=== PATIENT | female | born 1990 | race African-American/Black ===

== ENCOUNTER 2019-12-08 14:26 | Emergency (ER) | payer MEDICAID, OTHER ==
[~2019-12-08] VITALS: Ht 165.1 cm; Wt 100.0 kg
[~2019-12-08 14:26] MED LIST: FERR-43 PO; HYDR-523 PO; MULT-1146 PO
[2019-12-08] MEDS ORDERED: ACETAMINOPHEN 325MG TABLET PO ONE (15:15)
[2019-12-08 17:31] VITALS: BP 139/98
== END 2019-12-08 17:32 | disposition home or self-care (01) ==
LOC: ER 14:26
DX: G43.909 Migraine, unspecified, not intractable, without status migrainosus (principal); H40.9 Unspecified glaucoma; I10 Essential (primary) hypertension; Z98.890 Other specified postprocedural states; Z79.899 Other long term (current) drug therapy; Z88.6 Allergy status to analgesic agent
CPT/HCPCS: 81025; 99284

== ENCOUNTER 2021-10-29 23:12 | Emergency (ER) | payer MEDICAID ==
[~2021-10-29] VITALS: Ht 162.6 cm; Wt 132.0 kg
[2021-10-30] MEDS ORDERED: ACETAMINOPHEN 500MG TABLET PO ONE (01:15)
[2021-10-30 01:50] LABS: CHLORIDE 105 mEq/L (98-107)
[2021-10-30 01:56] LABS: BASOPHILS % 0.3 % (0.0-2.0); EOSINOPHILS % 2.4 % (0.0-5.0); HEMATOCRIT. 37.4 % (36.0-48.0); HEMOGLOBIN. 12.4 g/dL (12.0-16.0); LYMPHOCYTES % 27.6 % (20.0-50.0); MEAN CORPUSCULAR VOLUME 84.3 fL (81.0-99.0); MEAN PLATELET VOLUME 8.5 fl (7.4-10.4); MONOCYTES % 7.4 % (2.0-8.0); NEUTROPHILS % 62.3 % (40.0-76.0); PLATELET 202 x1000/uL (130-400); RED BLOOD CELL COUNT 4.43 mill/uL (4.2-5.4); RED CELL DISTRIBUTION WIDTH 13.7 % (11.6-14.6)
[2021-10-30 03:30] VITALS: BP 133/87
== END 2021-10-30 04:00 | disposition home or self-care (01) ==
LOC: ER 23:12
DX: O98.511 Other viral diseases complicating pregnancy, first trimester (principal); J06.9 Acute upper respiratory infection, unspecified; R00.0 Tachycardia, unspecified; Z20.822 Contact with and (suspected) exposure to COVID-19; O99.411 Diseases of the circulatory system complicating pregnancy, first trimester; I11.9 Hypertensive heart disease without heart failure; I43 Cardiomyopathy in diseases classified elsewhere; Z3A.01 Less than 8 weeks gestation of pregnancy
CPT/HCPCS: 36415; 71045; 80053; 81025; 83880; 84484; 85025; 87426; 87804; 93005; 99285